=== PATIENT | male | born 1965 | race African-American/Black ===

== ENCOUNTER 2019-12-30 21:40 | Emergency (ER) | payer MEDICAID ==
[~2019-12-30] VITALS: Ht 188 cm; Wt 80.0 kg
[2019-12-30 21:49] VITALS: BP 137/75
[2019-12-30] MEDS ORDERED: KETOROLAC 60MG/2ML VIAL IM ONE (22:30)
== END 2019-12-30 23:51 | disposition home or self-care (01) ==
LOC: ER 21:40
DX: M54.42 Lumbago with sciatica, left side (principal); Z87.442 Personal history of urinary calculi
CPT/HCPCS: 96372; 99283; J1885